=== PATIENT | male | born 1995 | race Caucasian/White ===

== ENCOUNTER 2017-03-12 15:32 | Emergency (ER) | payer OTHER ==
[~2017-03-12] VITALS: Ht 182.9 cm; Wt 104.0 kg
[2017-03-12 15:38] VITALS: TEMP 37.3; Ht 182.9 cm; Wt 104.0 kg
[2017-03-12] MEDS ORDERED: LORAZEPAM 2 MG/ML 1 ML VIAL IV STA (16:07)
[2017-03-12] MEDS ORDERED: GLUCAGON FOR INJ 1 MG VIAL IV STA (16:07)
[2017-03-12] MEDS ORDERED: NITROGLYCERIN 0.4 MG SL PER TAB CHARGE SL STA (16:07)
--- NOTE | 2017-03-12 16:16 | EMERGENCY ROOM VISIT NOTE ---
History Report prepared by Daniel: Catalina Lopez Under the Supervision of: Dr. Richard Venegas M.D. 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 Pt states has had this happen before and has had surgery before. Unable to swallow water. 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 The patient was at a restaurant eating steak. He felt that a piece of steak was stuck in his throat. Upon arrival in the ED the patient vomited and feels a lot better after vomiting. He has had this issue in the past. A few years ago he had an esophageal dilation procedure. He states that his symptoms significantly improved after that, but recently they have been worsening again. Occasionally when he eats too quickly he feels that the food is slow to go down his esophagus. The patient rates his pain as a 6/10 in severity. 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 A total of 10 systems reviewed and were otherwise negative. Past Medical & Surgical Surgical Problems: (1) Dilation of esophagus Family History No pertinent history stated. Social History Smoking Status: Never Smoker Marital Status: single Current/Historical Medications Scheduled Loratadine (Claritin), 10 MG PO DAILY Montelukast Sodium (Singulair), 10 MG PO DAILY [Nasonex], 1 SPRAY ANUJ BID Allergies Coded Allergies: Nut Tree (Unverified Allergy, Severe, ANAPHYLAXIS, 03/12/17) Peanut (Unverified Allergy, Severe, ANAPHYLAXIS, 03/12/17) Uncoded Allergies: SEAFOOD (Allergy, Severe, ANAPHYLAXIS, 03/12/17) Physical Exam Vital Signs Date Time Temp Pulse Resp B/P Pulse Ox O2 Delivery O2 Flow Rate FiO2 03/12/17 17:41 84 16 138/88 98 03/12/17 16:30 116 22 138/104 99 03/12/17 16:16 99 03/12/17 15:38 37.3 105 20 165/101 99 Room Air Physical Exam GENERAL: Patient is in no acute distress. There is a vomit bag at the bedside with chewed debris present. HEENT: No acute trauma, normocephalic atraumatic, mucous membranes moist, no nasal congestion, no scleral icterus. NECK: No stridor, no adenopathy, no meningismus, trachea is midline. LUNGS: Clear to auscultation bilaterally, no wheeze, no rhonchi, breath sounds equal. HEART: Without murmurs gallops or rubs, regular rate and rhythm. ABDOMEN: Soft, nontender, bowel sounds positive, no hernias, no peritonitis. EXTREMITIES: No cyanosis or edema, full range of motion of all the joints without pain or difficulty, no signs for acute trauma. NEUROLOGIC: Oriented x 3, no acute motor or sensory deficits, no focal weakness. SKIN: No rash, no jaundice, no diaphoresis. Medical Decision & Procedures Medications Administered Medications (Trade) Dose Ordered Sig/Mikal Route Start Time Stop Time Status Last Admin Dose Admin Glucagon (Glucagon Inj) 2 mg NOW STAT IV 03/12/17 16:07 03/12/17 16:09 DC 03/12/17 16:07 2 MG Lorazepam (Ativan Inj) 1 mg NOW STAT IV 03/12/17 16:07 03/12/17 16:09 DC 03/12/17 16:21 1 MG Nitroglycerin (Nitrostat Tab) 0.4 mg 1607 STAT SL 03/12/17 16:07 03/12/17 16:09 DC 03/12/17 16:21 0.4 MG ED Course 1557: The patient was evaluated in room B1. A complete history and physical exam was performed. 1606: I reassessed the patient at this time. He failed the PO challenge. 1607: Nitroglycerin 0.4 mg SL, Lorazepam 1 mg IV, Glucagon 2 mg IV 1651: I reassessed he patient. He vomited more and is feeling much better. His esophagus feels more open and he would like to do a second PO challenge. 1710: The patient is doing well and tolerating fluids. 1736: I reassessed the patient at this time. He is feeling better and resting comfortably. I discussed the results and treatment plan with the patient. I answered all pertaining questions that he had. He expressed understanding and verbalized agreement. The patient will be discharged home. Medical Decision Differential diagnoses includes esophageal stricture, esophageal narrowing, aspiration, esophageal food bolus, eosinophilic esophagitis. The patient presents with an esophageal food bolus. He has had a similar issue in the past. He initially had felt as if the bolus had passed but was still unable to drink liquids. He received sublingual nitroglycerin, IV Ativan and IV glucagon. He did regurgitate some food and did feel as if things were open. He was able to drink liquids. The patient is being discharged. He will follow with GI for an endoscopy. He likely has a narrowing in his esophagus, he understands. Impression Primary Impression: Esophageal obstruction due to food impaction Scribe Attestation The scribe's documentation has been prepared under my direction and personally reviewed by me in its entirety. I confirm that the note above accurately reflects all work, treatment, procedures, and medical decision making performed by me. Departure Information Dispostion Home / Self-Care Referrals No Doctor, Assigned (PCP) Forms HOME CARE DOCUMENTATION FORM, IMPORTANT VISIT INFORMATION, WORK / SCHOOL INSTRUCTIONS Patient Instructions My [facility] Molecular Imprints Additional Instructions lots of liquid with meals chew well talk with your doctor about a scope return if worsening
[2017-03-12] MEDS ORDERED: CLR10 PO (16:50)
[2017-03-12] MEDS ORDERED: NASONEX NAE (16:50)
[2017-03-12] MEDS ORDERED: MONT1TAB3 PO (16:50)
[2017-03-12 17:41] VITALS: BP 138/88; PULSE 84; O2SAT 98
== END 2017-03-12 17:49 | disposition home or self-care (01) ==
LOC: C.EDB 15:32
DX: T18.120A Food in esophagus causing compression of trachea, initial encounter (principal); X58.XXXA Exposure to other specified factors, initial encounter; Y92.511 Restaurant or cafe as the place of occurrence of the external cause